=== PATIENT | female | born 1940 | race Caucasian/White ===

== ENCOUNTER 2016-06-13 20:49 | Emergency (ER) | payer OTHER ==
[~2016-06-13] VITALS: Ht 167.6 cm; Wt 59.0 kg
--- NOTE | 2016-06-13 21:39 | ED MVC/FALL/TRAUMA COMPLAINT ---
See Addendum History of Present Illness General Chief Complaint: Syncope and Near-Syncope Stated Complaint: BIBA SYNCOPE Source: patient Exam Limitations: poor historian Vital Signs & Intake/Output Vital Signs & Intake/Output Vital Signs Date Time Temp Pulse Resp B/P Pulse O2 O2 Flow FiO2 Ox Delivery Rate 06/13 2250 99.0 80 20 125/88 95 Room Air 06/13 2146 84 122/59 06/13 2100 98.4 06/13 2100 96 16 134/66 97 Room Air ED Intake and Output 06/14 0000 06/13 1200 Intake Total 0 Output Total Balance 0 Intake, Oral 0 Patient 130 lb Weight Allergies Coded Allergies: morphine (Intermediate, VOMITING 06/13/16) Reconcile Medications Augmentin (Augmentin 500-125 Tablet) 500 MG-125 MG TABLET 1 TAB PO TID INFECTION Simvastatin (Simvastatin*) (Unknown Strength) TABLET (Unknown Dose) DAILY HPL (Reported) Tramadol HCl (Ultram) 50 MG TABLET 1-2 TAB PO Q6P PRN PAIN Triage Note: PT BIBA FROM HOME. PER EMS PT HAD A SYNCOPAL EPISODE AT HOME AND FELL FROM STANDING POSITION. UPON EMS ARRIVAL TO HOME PT'S NOSE WAS BLEEDING AND PT COMPLAINS OF NOSE PAIN; PT DOES NOT REMEMBER THE FALL. UPON ED ARRIVAL PT ALERT AND ORIENTED, NOSE BLEED CONTROLLED. PT DENIES ANY BLOOD THINNERS. Triage Nurses Notes Reviewed? yes HPI: Patient presents for evaluation of an unwitnessed fall that happened at home at about 7:30 this evening. Patient states last thing she remembers was bending over in the kitchen to reach for the trash. She then awoke on the floor. She noticed that she had a nosebleed when she woke up. Patient was in her usual state of health prior to this event. Denies chest pain shortness of breath or heart palpitations prior. She denies any neck or back pain at this point. Not say how long she was on the floor but it was probably no longer than half an hour. She states that she currently has nose pain and trouble breathing through her Strohl. Past History Travel History Traveled to [place] past 21 day No Medical History Any Pertinent Medical History? see below for history Surgical History Surgical History: non-contributory Psychosocial History What is your primary language South African Tobacco Use: Current Daily Use Daily Tobacco Use Amount/Type: => 5 Cigarettes daily ETOH Use: heavy use Illicit Drug Use: denies illicit drug use Family History Hx Contributory? No Review of Systems Review of Systems Constitutional: Reports: no symptoms. Eyes: Reports: no symptoms. Ears, Nose, Throat, Mouth: Reports: see HPI. Respiratory: Reports: no symptoms. Cardiovascular: Reports: no symptoms. Gastrointestinal/Abdominal: Reports: no symptoms. Genitourinary: Reports: no symptoms. Musculoskeletal: Reports: no symptoms. Skin: Reports: no symptoms. Neurological/Psychological: Reports: no symptoms. All Other Systems: Reviewed and Negative Physical Exam Physical Exam General Appearance: SEE BELOW Comments: Gen.: Well-nourished, well-developed, no acute respiratory distress. Thin. Head: Normocephalic, atraumatic, nontender. Eyes: Normal inspection bilaterally, rudy, EOMI, no periorbital ecchymoses Ears: Normal inspection bilaterally, no hernandez sign Nose: Nasal deformity present with dried blood in the nostrils, no septal hematoma Throat/mouth : Moist mucosa Neck: Supple, full range of motion, no goiter, nontender Heart: Regular rate and rhythm, no murmurs rubs or gallops Lungs: Clear to auscultation bilaterally with normal air entry Chest: Nontender Back: Normal range of motion, nontender Abdomen: Soft, nontender, nondistended, normal bowel sounds Pelvis: Stable and nontender Extremities: Normal range of motion grossly, no tenderness, no cyanosis clubbing or edema, abrasion over the left knee Neurologic: Alert and oriented, Cranial nerves grossly intact, speech is clear Skin: warm and dry and without ecchymoses or soft tissue swelling or erythema Psychiatric: Calm, cooperative, no apparent delusions or hallucinations Core Measures ACS in differential dx? No Severe Sepsis Present: No Septic Shock Present: No Progress Differential Diagnosis: C/T/L spine injury, FACIAL BONE FX, SYNCOPE, INFECTION Plan of Care: Orders Procedure Date/time Status Saline Lock 06/13 2141 Active MISTAKE 06/13 2141 Active Telemetry/Database Reporting Consultant 06/13 2141 Active URINALYSIS 06/13 2141 Complete THYROID STIMULATING HORMONE 06/13 2141 Complete TROPONIN LEVEL 06/13 2141 Complete COMPREHENSIVE METABOLIC PANEL 06/13 2141 Complete CBC WITHOUT DIFFERENTIAL 06/13 2141 Complete EKG 06/13 2102 Active Current Medications Sig/Salazar Start time Last Medication Dose Stop Time Status Admin Amoxicillin/ 500 MG ONCE ONE 06/14 14 UNVr Clavulanate Potassium 06/14 15 (Augmentin) Laboratory Tests 06/13/162203: Urinalysis MOD H, Urine Color YEL, Urine Clarity CLEAR, Urine pH 6.0, Ur Specific Hull 1.020, Urine Protein NEG, Urine Ketones NEG, Urine Nitrite NEG, Urine Bilirubin NEG, Urine Urobilinogen 0.2, Ur Leukocyte Esterase SMALL H, Ur Microscopic SEDIMENT EXAMINED, Urine RBC 3-5, Urine WBC 10-15 H, Ur Epithelial Cells MOD H, Urine Mucus MOD H, Urine Hemoglobin TRACE-INTACT, Urine Glucose NEG 06/13/162200: Anion Gap 14, Estimated GFR 54 L, BUN/Creatinine Ratio 17.0, Glucose 91, Calcium 9.7, Total Bilirubin 0.4, AST 27, ALT 30, Alkaline Phosphatase 75, Troponin I < 0.01, Total Protein 7.2, Albumin 4.3, Globulin 2.9, Albumin/ Globulin Ratio 1.5, TSH 0.999, CBC w Diff NO MAN DIFF REQ, RBC 4.80, MCV 91.5, MCH 30.3, RDW 13.5, MPV 7.9, Gran % 64.3, Lymphocytes % 25.2, Monocytes % 6.6, Eosinophils % 2.9, Basophils % 1.0, Absolute Granulocytes 3.8, Absolute Lymphocytes 1.5, Absolute Monocytes 0.4, Absolute Eosinophils 0.2, Absolute Basophils 0.1, PUBS MCHC 33.1 Diagnostic Imaging: Discussed w/RAD: CT Scan. Radiology Impression: PATIENT: EMERY HERNANDEZ PRESENT AGE: 76 PATIENT ACCOUNT NO: [id number] : 39 LOCATION: [facility] ORDERING PHYSICIAN: FELIPE YOON MD SERVICE DATE: 06/13/16 EXAM TYPE: CAT - CT CERV SPINE WO IV CONTRAST; CT HEAD WO IV CONTRAST; CT MAXILLOFACIAL W/O CON EXAMINATION: CT OF THE HEAD WITHOUT CONTRAST CT MAXILLOFACIAL WITHOUT CONTRAST CT OF THE CERVICAL SPINE WITHOUT CONTRAST CLINICAL INFORMATION: Status post fall /syncope with nose bleeding. COMPARISON: None. TECHNIQUE: Contiguous axial imaging of the head was performed without the administration of IV contrast. Axial multidetector volumetric images were also performed through the cervical spine without contrast. Images were obtained through the facial bones from the superior aspect of the paranasal sinuses through the mandible. Multiplanar reconstructed images in coronal and sagittal orientations were submitted. DOSE: 1330 mGy-cm FINDINGS: HEAD: There is no evidence of acute intracranial hemorrhage or territorial infarction. No abnormal mass-effect or midline shift. No extra-axial fluid collections. Lester to white matter differentiation is well preserved. Moderate enlargement of the ventricles, sulci, and extra-axial CSF spaces is in keeping with age-appropriate parenchymal volume loss. A few subtle foci of hypoattenuation in the subcortical and periventricular white matter are present, most commonly attributable to chronic microangiopathic changes. Calcific atherosclerosis is present within the cavernous and supraclinoid segments of the internal carotid arteries. The soft tissues and osseous structures are normal. The sinuses and mastoid air cells are clear. FACE: There is a subtle fracture of the anterior margin of the left nasal process of the maxilla as well as the anterior margin of the anterior nasal spine maxilla. The nasal bone proper is intact. There is a fracture of the nasal septum (vomer) posteriorly as well as a minimally displaced fracture of the central ethmoid perpendicular plate. No additional fractures are identified. The khan of the orbits and maxillary sinuses are intact. Cribriform plate remains intact. Frontal and paranasal sinuses are clear. Ethmoid air cells are clear. There is mucosal thickening in the nasal cavity. Master cells are clear. Minimal degenerative changes are present at the temporomandibular joints. Maxilla and mandible are edentulous. No dentures are in place. Orbits are intact. Extraocular muscles and surrounding fat are unremarkable. Nasopharynx and oropharynx are unremarkable. CERVICAL SPINE: No acute fracture or malalignment in the cervical spine. Vertebral body heights are normal. No spondylolisthesis. No significant paraspinal soft tissue swelling. There is moderate to severe degenerative disc disease in the cervical spine from C3 C4 through C6 C7. Mild multilevel facet arthropathy. Uncovertebral osteophytes produce neural foraminal narrowing at C3-C4, C4-C5, and C5-C6 bilaterally. Posterior disc osteophyte complexes produce at most mild central canal narrowing at these levels. A vascular stent is present in the region of the left subclavian/brachiocephalic vein. Pleural parenchymal scarring is present in the lung apices. Emphysema is present in the lung apices as well. The paraspinal soft tissues are otherwise unremarkable. IMPRESSION: 1. No acute intracranial pathology. 2. Minimally displaced fractures of the nasal septum, anterior margin of the left nasal process of the maxilla, anterior nasal spine of the maxilla, and the central perpendicular ethmoid plate anteriorly. No orbital or maxillary fractures. 3. No acute fracture or malalignment the cervical spine. Moderate to severe multilevel degenerative disc disease. DICTATED BY: ALLEN GUEVARA MD DATE/TIME DICTATED:2222 MILL CONTROL OPERATOR:MASHA DATE/TIME TRANSCRIBED:06/13/162222 CONFIDENTIAL, DO NOT COPY WITHOUT APPROPRIATE AUTHORIZATION. <Electronically signed in Other Vendor System> SIGNED BY: ALLEN GUEVARA MD 06/13/16 1475 Comments: Patient's case discussed with Dr. Irizarry, ear nose and throat covering for trauma at [place]. I have reviewed the patient's CAT scan report in detail and he feels that there is no emergent surgical intervention necessary. He recommends antibiotic coverage and follow-up within a week with an director of nuclear medicine. Departure Departure Disposition: HOME OR SELF CARE Condition: Stable Clinical Impression Primary Impression: Nasal fracture Qualifiers: Encounter type: initial encounter Fracture type: closed Qualified Code: S02.2XXA - Fracture of nasal bones, initial encounter for closed fracture Secondary Impressions: Cervical arthritis Epistaxis Fall Qualifiers: Encounter type: initial encounter Qualified Code: W19.XXXA - Unspecified fall, initial encounter Referrals: JERSEY RODRIGUEZ,DAMIÁN LUND MD,JUANCARLOS Ribeiro (PCP/Family) Additional Instructions: Augmentin as prescribed. Tramadol as needed for pain. Follow-up with your ear nose and throat doctor or Dr. Leone this week for reevaluation. Apply cool compresses to your nose. If you have any nosebleeding episodes pinch your nostrils together gently to stop the bleeding. Notify your primary care doctor of this emergency department visit and treatment plan. Return if any concerns or sudden worsening. Please note that there might be incidental findings in your evaluation that are unrelated to the current emergency department visit. Please notify your primary care doctor about this emergency department visit in order to obtain and review all of the testing performed so that these incidental findings can be monitored as needed. If you had an x-ray performed, please understand that some fractures may not be seen on the initial set of x-rays. If your symptoms persist you might need a repeat set of x-rays to check for such a fracture. If you had a laceration evaluated, please understand that foreign bodies such as glass or wood may not be visible to the naked eye or on plain x-rays. If the wound becomes red, swollen, increasingly more painful or if there is any drainage from the wound, please have it reevaluated by a physician for the possibility of a retained foreign body. Thank you for choosing the [facility] Emergency Department for your care. It was a pleasure to serve you today. Felipe Yoon M.D. [facility] Departure Forms: Customer Survey General Discharge Information Prescriptions: Current Visit Scripts Augmentin (Augmentin 500-125 Tablet) 1 TAB PO TID #21 TAB Tramadol HCl (Ultram) 1-2 TAB PO Q6P PRN PAIN #20 TAB Critical Care Note Critical Care Note Critical Care Time: 30-74 min
[2016-06-13 22:14] LABS: ABSOLUTE BASOPHIL COUNT 0.1 /CUMM (0.0-0.2); ABSOLUTE EOSINOPHIL COUNT 0.2 /CUMM (0.0-0.7); ABSOLUTE GRANULOCYTE CT 3.8 /CUMM (1.4-6.5); ABSOLUTE LYMPH COUNT 1.5 /CUMM (1.2-3.4); ABSOLUTE MONOCYTE COUNT 0.4 /CUMM (0.10-0.60); EOSINOPHIL % 2.9 % (0-5); GRANULOCYTE % 64.3 % (42.2-75.2); MEAN CORPUSCULAR HGB 30.3 PG (27.0-31.0); MEAN CORPUSCULAR HGB CONC 33.1 G/DL (33.0-37.0); MEAN CORPUSCULAR VOLUME 91.5 FL (81.0-99.0); MEAN PLATELET VOLUME 7.9 FL (7.4-10.4); PLATELET COUNT 194 /CUMM (130-400); RBC DISTRIBUTION WIDTH 13.5 % (11.5-14.5)
--- NOTE | 2016-06-13 22:46 | CT SCAN REPORT ---
EXAMINATION: CT OF THE HEAD WITHOUT CONTRAST CT MAXILLOFACIAL WITHOUT CONTRAST CT OF THE CERVICAL SPINE WITHOUT CONTRAST CLINICAL INFORMATION: Status post fall/syncope with nose bleeding. COMPARISON: None. TECHNIQUE: Contiguous axial imaging of the head was performed without the administration of IV contrast. Axial multidetector volumetric images were also performed through the cervical spine without contrast. Images were obtained through the facial bones from the superior aspect of the paranasal sinuses through the mandible. Multiplanar reconstructed images in coronal and sagittal orientations were submitted. DOSE: 1330 mGy-cm FINDINGS: HEAD: There is no evidence of acute intracranial hemorrhage or territorial infarction. No abnormal mass-effect or midline shift. No extra-axial fluid collections. Lester to white matter differentiation is well preserved. Moderate enlargement of the ventricles, sulci, and extra-axial CSF spaces is in keeping with age-appropriate parenchymal volume loss. A few subtle foci of hypoattenuation in the subcortical and periventricular white matter are present, most commonly attributable to chronic microangiopathic changes. Calcific atherosclerosis is present within the cavernous and supraclinoid segments of the internal carotid arteries. The soft tissues and osseous structures are normal. The sinuses and mastoid air cells are clear. FACE: There is a subtle fracture of the anterior margin of the left nasal process of the maxilla as well as the anterior margin of the anterior nasal spine maxilla. The nasal bone proper is intact. There is a fracture of the nasal septum (vomer) posteriorly as well as a minimally displaced fracture of the central ethmoid perpendicular plate. No additional fractures are identified. The khan of the orbits and maxillary sinuses are intact. Cribriform plate remains intact. Frontal and paranasal sinuses are clear. Ethmoid air cells are clear. There is mucosal thickening in the nasal cavity. Master cells are clear. Minimal degenerative changes are present at the temporomandibular joints. Maxilla and mandible are edentulous. No dentures are in place. Orbits are intact. Extraocular muscles and surrounding fat are unremarkable. Nasopharynx and oropharynx are unremarkable. CERVICAL SPINE: No acute fracture or malalignment in the cervical spine. Vertebral body heights are normal. No spondylolisthesis. No significant paraspinal soft tissue swelling. There is moderate to severe degenerative disc disease in the cervical spine from C3 C4 through C6 C7. Mild multilevel facet arthropathy. Uncovertebral osteophytes produce neural foraminal narrowing at C3-C4, C4-C5, and C5-C6 bilaterally. Posterior disc osteophyte complexes produce at most mild central canal narrowing at these levels. A vascular stent is present in the region of the left subclavian/brachiocephalic vein. Pleural parenchymal scarring is present in the lung apices. Emphysema is present in the lung apices as well. The paraspinal soft tissues are otherwise unremarkable. IMPRESSION: 1. No acute intracranial pathology. 2. Minimally displaced fractures of the nasal septum, anterior margin of the left nasal process of the maxilla, anterior nasal spine of the maxilla, and the central perpendicular ethmoid plate anteriorly. No orbital or maxillary fractures. 3. No acute fracture or malalignment the cervical spine. Moderate to severe multilevel degenerative disc disease.
[2016-06-13] MEDS ORDERED: SIMVASTATIN5 M2 (22:51)
[2016-06-14] MEDS ORDERED: ULTRAM50 M1 PO (00:06)
[2016-06-14] MEDS ORDERED: AUGMENTIN 500-1 EACH PO (00:06)
[2016-06-14 00:26] VITALS: BP 130/34
== END 2016-06-14 00:27 ==
LOC: ERH 20:49
PROVIDERS: Emergency Medicine
DX: S02.2XXA Fracture of nasal bones, initial encounter for closed fracture (principal); M47.812 Spondylosis without myelopathy or radiculopathy, cervical region; R04.0 Epistaxis; W19.XXXA Unspecified fall, initial encounter
CPT/HCPCS: 81001; 93005; 93010; J3490